=== PATIENT | male | born 1965 | race Caucasian/White ===

== ENCOUNTER 2024-04-10 03:43 | Emergency (ER) | payer OTHER ==
[2024-04-10] MEDS ORDERED: Gabapentin 100 MG CAP ONE (04:01)
[2024-04-10] MEDS ORDERED: Ketorolac Tromethamine 30 MG (1 mL) VIAL ONE (05:45)
== END 2024-04-10 07:36 | disposition home or self-care (01) ==
LOC: MADERS 03:43
DX: E11.40 Type 2 diabetes mellitus with diabetic neuropathy, unspecified (principal); E11.621 Type 2 diabetes mellitus with foot ulcer; L97.429 Non-pressure chronic ulcer of left heel and midfoot with unspecified severity; I25.2 Old myocardial infarction; E11.9 Type 2 diabetes mellitus without complications; Z55.6 Problems related to health literacy; Z79.82 Long term (current) use of aspirin; Z79.4 Long term (current) use of insulin; Z79.84 Long term (current) use of oral hypoglycemic drugs; Z79.899 Other long term (current) drug therapy
CPT/HCPCS: 96374; J1885